=== PATIENT | male | born 1975 | race Caucasian/White ===

== ENCOUNTER 2019-05-17 17:58 | Emergency (ER) | payer SELFPAY ==
[2019-05-17] MEDS ORDERED: Ibuprofen 800 MG Tab PO ONE (18:13)
[2019-05-17] MEDS ORDERED: Metoprolol Tartrate 50 MG Tab PO ONE (18:13)
--- NOTE | 2019-05-17 18:20 | EDM.PDOC ---
ED HPI GENERAL MEDICAL PROBLEM - General Chief Complaint: Cardiovascular Problem Stated Complaint: HIGH BP Time Seen by Provider: 05/17/19 18:06 Source of Information: Reports: Patient History Limitations: Reports: No Limitations - History of Present Illness INITIAL COMMENTS - FREE TEXT/NARRATIVE: The patient presents with a headache and elevated blood pressure. He has a history of hypertension and was on lisinopril 20mg. He ran out about a week ago. He has no numbness or weakness. He has no fever, chills, cough, congestion, runny nose, chest pain or shortness of breath. He has no abdominal pain, nausea or vomiting. Onset: Gradual Duration: Day(s): Location: Reports: Head Quality: Reports: Ache Severity: Moderate Improves with: Reports: None Worsens with: Reports: None Associated Symptoms: Reports: Headaches. Denies: Chest Pain, Cough, Fever/ Chills, Nausea/Vomiting, Shortness of Breath - Related Data Allergies Allergy/AdvReac Type Severity Reaction Status Date / Time No Known Allergies Allergy Verified 05/17/19 18:07 Home Meds: Home Meds Lisinopril [Zestril] 20 mg PO DAILY #30 tablet 05/17/19 [Rx] Past Medical History Cardiovascular History: Reports: Hypertension Neurological History: Reports: Migraines Social & Family History - Family History Family Medical History: Noncontributory - Tobacco Use Smoking Status *Q: Never Smoker - Recreational Drug Use Recreational Drug Use: No ED ROS GENERAL - Review of Systems Review Of Systems: See Below Constitutional: Reports: No Symptoms HEENT: Reports: No Symptoms Respiratory: Reports: No Symptoms Cardiovascular: Reports: No Symptoms Endocrine: Reports: No Symptoms GI/Abdominal: Reports: No Symptoms : Reports: No Symptoms Musculoskeletal: Reports: No Symptoms Skin: Reports: No Symptoms Neurological: Reports: Headache. Denies: Numbness, Weakness ED EXAM, GENERAL - Physical Exam Exam: See Below Exam Limited By: No Limitations General Appearance: Alert, No Apparent Distress Ears: Normal External Exam Nose: Normal Inspection Head: Atraumatic, Normocephalic Neck: Normal Inspection Respiratory/Chest: No Respiratory Distress, Lungs Clear, Normal Breath Sounds Cardiovascular: Regular Rate, Rhythm, No Edema, No Murmur GI/Abdominal: Soft, Non-Tender, No Organomegaly, No Mass Back Exam: Normal Inspection Extremities: Normal Inspection Neurological: Alert, Oriented, No Motor/Sensory Deficits Course - Vital Signs Last Recorded V/S: Last Vital Signs Temp 98.8 F 05/17/19 18:05 Pulse 75 05/17/19 18:05 Resp 16 05/17/19 18:05 BP 175/119 H 05/17/19 18:05 Pulse Ox 95 05/17/19 18:05 - Orders/Labs/Meds Meds: Medications Discontinued Medications Generic Name Dose Route Start Last Admin Trade Name Trudy PRN Reason Stop Dose Admin Ibuprofen 800 mg 05/17/19 18:13 Motrin PO 05/17/19 18:14 ONETIME ONE Metoprolol Tartrate 50 mg 05/17/19 18:13 Lopressor PO 05/17/19 18:14 ONETIME ONE - Re-Assessments/Exams Free Text/Narrative Re-Assessment/Exam: 05/17/19 18:18 I ordered some metoprolol 50mg PO and motrin 800mg PO. I will refill his lisinopril. Departure - Departure Time of Disposition: 18:20 Disposition: Home, Self-Care 01 Condition: Good Clinical Impression: Essential hypertension Headache Qualifiers: Headache type: unspecified Headache chronicity pattern: acute headache Intractability: not intractable Qualified Code(s): R51 - Headache Prescriptions: Lisinopril [Zestril] 20 mg PO DAILY #30 tablet Referrals: PCP,None [Primary Care Provider] - Norma Lau PA-C [[facility] [employer]] - 1 Week Additional Instructions: Take tylenol or motrin as needed for pain. Take the lisinopril daily. Please return if you are worse. Sepsis Event Note - Evaluation Sepsis Screening Result: No Definite Risk - Focused Exam Vital Signs: Vital Signs Temp Pulse Resp BP Pulse Ox 05/17/19 18:05 98.8 F 75 16 175/119 H 95 Date Exam was Performed: 05/17/19 Time Exam was Performed: 18:15
[2019-05-17 18:26] VITALS: BP 184/118; PULSE 77
== END 2019-05-17 18:32 | disposition home or self-care (01) ==
LOC: JD.ED 17:58
DX: I10 Essential (primary) hypertension (principal); Z79.899 Other long term (current) drug therapy
CPT/HCPCS: 99283; A9270